=== PATIENT | male | born 1990 | race Caucasian/White ===

== ENCOUNTER 2016-11-18 12:02 | Emergency (ER) | payer SELFPAY ==
[~2016-11-18] VITALS: Ht 185.4 cm; Wt 78.0 kg
[~2016-11-18 12:02] MED LIST: Z.0.NO CURRENT MEDS
[2016-11-18 12:06] VITALS: BP 130/84; PULSE 78; RESP 16; TEMP 98.2; O2SAT 99
--- NOTE | 2016-11-18 12:12 | PD ---
HPI Chief Complaint: Pain: Acute or Chronic Time Seen by Provider: 12:10 Travel History International Travel<30 days: No Contact w/Intl Traveler<30days: No Traveled to known affect area: No History of Present Illness HPI 26 year old male presents to the ED for evaluation of 5/10 left-sided rib pain. Onset 3 days ago after he fell approximately 3 feet onto a wooden post. He endorses pain in the area, worsened by deep breathing and certain motions. He also endorses mild nausea. Denies abdominal pain, anorexia, changes in bowel habits, hematuria or back pain. He's been treating by resting. He's unsure of previous injury to the area. PFSH Past Medical History Hx Anticoagulant Therapy: No Anxiety: Yes Heart Rhythm Problems: Yes (HEART MURMUR ) Diminished Hearing: No Immunizations Current: Yes Social History Alcohol Use: Yes (SOCIAL) Tobacco Use: Yes (1 PPD) Substance Use: No Allergies-Medications (Allergen,Severity, Reaction): Coded Allergies: Advil (Verified Allergy, Mild, Swelling, 11/18/16) Reported Meds & Prescriptions Reported Meds & Active Scripts Active No Active Prescriptions or Reported Medications Review of Systems Except as stated in HPI: all other systems reviewed are Neg Physical Exam Narrative GENERAL: Well-nourished, well-developed white male in no acute distress. SKIN: Focused skin assessment warm/dry. No edema, ecchymosis or abrasion noted. HEAD: Normocephalic. EYES: No scleral icterus. No injection or drainage. NECK: Supple, trachea midline. No JVD or lymphadenopathy. CARDIOVASCULAR: Regular rate and rhythm without murmurs, gallops, or rubs. CHEST: Tender to palpation of the lower left anterior ribs. RESPIRATORY: Breath sounds clear and equal bilaterally. No accessory muscle use. GASTROINTESTINAL: Abdomen soft, non-tender, nondistended. + Active bowel sounds. No tenderness to deep palpation of the spleen. MUSCULOSKELETAL: No cyanosis, or edema. Patient is noted to walk with a normal gait. He moves extremities spontaneously. BACK: Nontender without obvious deformity. No CVA tenderness. No midline tenderness to palpation. Data Data Last Documented VS Vital Signs Date Time Temp Pulse Resp B/P Pulse Ox O2 Delivery O2 Flow Rate FiO2 11/18/16 12:06 98.2 78 16 130/84 99 Orders Ribs, Uni (W/Exp Cxr-Min 3vw) (11/18/16 12:17) [facility] Medical Decision Making Medical Screen Exam Complete: Yes Emergency Medical Condition: Yes Differential Diagnosis contusion versus rib fracture versus splenic injury versus pneumothorax versus other Narrative Course 26 year old male presents to the ED for evaluation of 5/10 left-sided rib pain. Onset 3 days ago after he fell approximately 3 feet onto a wooden post. He endorses pain in the area, worsened by deep breathing and certain motions. He also endorses mild nausea. Denies abdominal pain, anorexia, changes in bowel habits, hematuria or back pain. Vitals reviewed. Physical exam reveals a nontoxic-appearing white male in no acute distress. There is no ecchymosis or edema over the anterior lateral ribs. ++ Mild tenderness to palpation of anterior lateral ribs. Abdominal exam is benign. Deep palpation of the spleen produces no pain. Breath sounds clear and equal bilaterally. No tenderness to palpation of the back. Patient endorses allergy to Advil. X-rays reveal no definite rib fracture or displaced ribs per radiology read. This is rib contusion. I offered the patient a prescription for Naprosyn which he declined. Patient instructed to rest, ice, utilize OTC pain medications, return to normal, gentle activity as tolerated, follow up with the primary care provider. He indicated understanding of instructions and is agreeable to the care plan. Patient is stable and discharged home. Diagnosis Primary Impression: Contusion of rib on left side Qualified Code: S20.212A - Contusion of rib on left side, initial encounter Referrals: Primary Care Physician Patient Instructions: General Instructions, Rib Contusion (ED) Additional Instructions: Rest, ice. Apply ice no longer than 10-15 minutes per hour a few times a day. Aleve 500md twice a day to reduce pain and inflammation. Return to normal, gentle activity as tolerated. Follow-up with primary care provider. Return to the ED for any urgent or emergent medical condition. Scripts No Active Prescriptions or Reported Meds Disposition: 01 DISCHARGE HOME Condition: Stable Rohini Guido Nov 18, 2016 12:12
--- NOTE | 2016-11-18 13:23 | RADHPO ---
EXAM DATE/TIME: 11/18/2016 12:27 [facility] COMPARISON: No previous studies available for comparison. INDICATIONS : Fall from ladder 3 days ago. Continued left lower rib pain. MEDICAL HISTORY : None. SURGICAL HISTORY : None. ENCOUNTER: Initial ACUITY: 3 days PAIN SCORE: 7/10 LOCATION: Left lower chest FINDINGS: No definite displaced rib fractures or pneumothorax is identified. CONCLUSION: No definite displaced rib fractures. Mansi Tillman MD on November 18, 2016 at 13:20 Board Certified Radiologist. This report was verified electronically.
== END 2016-11-18 13:46 | disposition home or self-care (01) ==
LOC: PHEFT 12:02
DX: S20.212A Contusion of left front wall of thorax, initial encounter (principal); R01.1 Cardiac murmur, unspecified; F17.210 Nicotine dependence, cigarettes, uncomplicated; W17.89XA Other fall from one level to another, initial encounter; Y93.9 Activity, unspecified; Y92.9 Unspecified place or not applicable; Y99.8 Other external cause status
CPT/HCPCS: 71101; 99283

== ENCOUNTER 2017-08-30 09:18 | Emergency (ER) | payer SELFPAY ==
[~2017-08-30] VITALS: Ht 185.4 cm; Wt 77.0 kg
[2017-08-30 09:20] VITALS: BP 142/88; PULSE 88; RESP 14; TEMP 98.2; O2SAT 100
[2017-08-30 10:09] LABS: BILIRUBIN, URINE NEG (NEG); BLOOD, URINE TRACE (NEG); GLUCOSE,URINE NEG (NEG); KETONE, URINE TRACE mg/dL (NEG); NITRITE,URINE NEG (NEG); URINE COLOR LIGHT-YELLOW (YELLW/STRAW); URINE LEUKOCYTE ESTERASE SMALL (NEG)
--- NOTE | 2017-08-30 12:58 | RADRPT ---
EXAM DATE/TIME: 08/30/2017 12:39 [facility] COMPARISON: No previous studies available for comparison. INDICATIONS : Right flank pain,renal calculi. ORAL CONTRAST: No oral contrast ingested. RADIATION DOSE: 7.97 CTDIvol (mGy) MEDICAL HISTORY : Heart murmur SURGICAL HISTORY : None. ENCOUNTER: Initial ACUITY: 3 days PAIN SCALE: 7/10 LOCATION: Right flank TECHNIQUE: Volumetric scanning of the abdomen and pelvis was performed. Using automated exposure control and ad justment of the mA and/or kV according to patient size, radiation dose was kept as low as reasonably achievable to obtain optimal diagnostic quality images. DICOM format image data is available electro nically for review and comparison. FINDINGS: LOWER LUNGS: The visualized lower lungs are clear. LIVER: Homogeneous density without lesion. There is no dilation of the biliary tree. No calcified gallston es. SPLEEN: Normal size without lesion. PANCREAS: Within normal limits. KIDNEYS: There is a 5 mm mid right ureteral stone projecting at the level of the L3-L4 disc space. This genera esther moderate hydronephrosis and proximal hydroureter. No other stones observed. Left kidney is unrema rkable. No perinephric stranding or fluid collections involving either kidney. ADRENAL GLANDS: Within normal limits. VASCULAR: There is no aortic aneurysm. BOWEL/MESENTERY: The stomach, small bowel, and colon demonstrate no acute abnormality. There is no free intraperitone al air or fluid. ABDOMINAL WALL: Within normal limits. RETROPERITONEUM: There is no lymphadenopathy. BLADDER: No wall thickening or mass. REPRODUCTIVE: Within normal limits. INGUINAL: There is no lymphadenopathy or hernia. MUSCULOSKELETAL: Within normal limits for patient age. CONCLUSION: 1. 5 mm mid right ureteral stone with resulting obstruction. No perinephric fluid collections. Lakhwinder Saleh Jr., MD on August 30, 2017 at 12:51 Board Certified Radiologist. This report was verified electronically.
[2017-08-30] MEDS ORDERED: KETOROLAC TROMETHAMINE 30 MG/ML (IVP) VIAL IVP ONE (13:15)
[2017-08-30] MEDS ORDERED: TAMSULOSIN HCL 0.4 MG CAP PO ONE (13:15)
[2017-08-30] MEDS ORDERED: SODIUM CHLOR 0.9% 1000 ML INJ 1,000 ML IV ONE (13:15)
[2017-08-30] MEDS ORDERED: ONDANSETRON HCL 4 MG/2 ML VIAL IVP ONE (13:15)
[2017-08-30] MEDS ORDERED: SODIUM CHLORIDE 0.9% FLUSH 10 ML FLUSH IVF PRN (13:15)
--- NOTE | 2017-08-30 13:19 | PD ---
HPI Chief Complaint: Flank/Kidney Pain Time Seen by Provider: 12:53 Travel History International Travel<30 days: No Contact w/Intl Traveler<30days: No Traveled to known affect area: No History of Present Illness HPI 27-year-old male presents to emergency department with ongoing right kidney stone pain, which has been going on for approximately 10 days. Patient was originally seen at [facility], with follow-up with one of their urologist possibly one week ago. Patient states his pain is still intermittent and he had a bad right flank pain attack earlier this morning. Patient was on Toradol and Flomax, but currently only on ibuprofen since seeing the urologist. He denies hematuria since the beginning. No fever, chills, he has had nausea but no vomiting. Patient is reportedly allergic to ibuprofen but can take Toradol, and took ibuprofen this morning. PFSH Past Medical History Hx Anticoagulant Therapy: No Anxiety: Yes Heart Rhythm Problems: Yes (HEART MURMUR ) Diminished Hearing: No Immunizations Current: Yes Social History Alcohol Use: Yes (SOCIAL) Tobacco Use: No (QUIT 11/11/16) Substance Use: No Allergies-Medications (Allergen,Severity, Reaction): Coded Allergies: ibuprofen (Verified Allergy, Unknown, 08/30/17) Reported Meds & Prescriptions Reported Meds & Active Scripts Active Hydrocodone-Acetaminophen 5-325 mg Tab 1 Tab PO Q6H PRN Zofran (Ondansetron HCl) 4 Mg Tab 4 Mg PO Q6HR PRN Flomax (Tamsulosin HCl) 0.4 Mg Cap 0.4 Mg PO HS Ibuprofen 800 Mg Tab 800 Mg PO Q8H PRN Review of Systems Except as stated in HPI: all other systems reviewed are Neg General / Constitutional: No: Fever, Chills Eyes: No: Visual changes HENT: No: Headaches Cardiovascular: No: Chest Pain or Discomfort Respiratory: No: Shortness of Breath Gastrointestinal: No: Abdominal Pain Genitourinary: Positive: Hematuria, Flank Pain (history), No: Dysuria Musculoskeletal: No: Pain Skin: No Rash Neurologic: No: Weakness Psychiatric: No: Depression Endocrine: No: Polydipsia Hematologic/Lymphatic: No: Easy Bruising Physical Exam Narrative GENERAL: Patient appears in mild distress. SKIN: Warm and dry. Normal color. Normal turgor HEAD: Atraumatic. Normocephalic. EYES: Pupils equal and round. No scleral icterus. No injection or drainage. ENT: No nasal bleeding or discharge. Mucous membranes pink and moist. NECK: Trachea midline. No JVD. CARDIOVASCULAR: Regular rate and rhythm. RESPIRATORY: No accessory muscle use. Clear to auscultation. Breath sounds equal bilaterally. GASTROINTESTINAL: Abdomen soft, non-tender, nondistended. Hepatic and splenic margins not palpable. Mild to moderate right-sided flank pain with pelvic compression. MUSCULOSKELETAL: Extremities without clubbing, cyanosis, or edema. No obvious deformities. NEUROLOGICAL: Awake and alert. No obvious cranial nerve deficits. Motor grossly within normal limits. Five out of 5 muscle strength in the arms and legs. Normal speech. PSYCHIATRIC: Appropriate mood and affect; insight and judgment normal. Data Data Last Documented VS Vital Signs Date Time Temp Pulse Resp B/P (MAP) Pulse Ox O2 Delivery O2 Flow Rate FiO2 08/30/17 09:20 98.2 88 14 142/88 (106) 100 Orders Orders Urinalysis - C+S If Indicated (08/30/17 09:35) Ct Abd/Pel W/O Iv Contrast (08/30/17 ) Complete Blood Count With Diff (08/30/17 13:06) Comprehensive Metabolic Panel (08/30/17 13:06) Iv Access Insert/Monitor (08/30/17 13:06) Ketorolac Inj (Toradol Inj) (08/30/17 13:15) Ondansetron Inj (Zofran Inj) (08/30/17 13:15) Sodium Chloride 0.9% Flush (Ns Flush) (08/30/17 13:15) Tamsulosin (Flomax) (08/30/17 13:15) Sodium Chlor 0.9% 1000 Ml Inj (Ns 1000 M (08/30/17 13:15) Ed Discharge Order (08/30/17 14:48) Labs Laboratory Tests Test 08/30/17 09:40 08/30/17 13:26 08/30/17 13:36 Urine Color LIGHT-YELLOW Urine Turbidity CLEAR Urine pH 6.0 Urine Specific [place] 1.003 Urine Protein NEG mg/dL Urine Glucose (UA) NEG mg/dL Urine Ketones TRACE mg/dL Urine Occult Blood TRACE Urine Nitrite NEG Urine Bilirubin NEG Urine Urobilinogen LESS THAN 2.0 MG/DL Urine Leukocyte Esterase SMALL Urine RBC 2 /hpf Urine WBC 3 /hpf Microscopic Urinalysis Comment CULT NOT INDICATED Blood Urea Nitrogen 9 MG/DL Creatinine 0.98 MG/DL Random Glucose 97 MG/DL Total Protein 7.3 GM/DL Albumin 4.2 GM/DL Calcium Level 9.0 MG/DL Alkaline Phosphatase 89 U/L Aspartate Amino Transf (AST/SGOT) 13 U/L Alanine Aminotransferase (ALT/SGPT) 15 U/L Total Bilirubin 0.3 MG/DL Sodium Level 142 MEQ/L Potassium Level 3.8 MEQ/L Chloride Level 108 MEQ/L Carbon Dioxide Level 27.1 MEQ/L Anion Gap 7 MEQ/L Estimat Glomerular Filtration Rate 90 ML/MIN White Blood Count 5.5 TH/MM3 Red Blood Count 4.84 MIL/MM3 Hemoglobin 15.1 GM/DL Hematocrit 42.8 % Mean Corpuscular Volume 88.4 FL Mean Corpuscular Hemoglobin 31.2 PG Mean Corpuscular Hemoglobin Concent 35.3 % Red Cell Distribution Width 12.4 % Platelet Count 272 TH/MM3 Mean Platelet Volume 7.9 FL Neutrophils (%) (Auto) 69.4 % Lymphocytes (%) (Auto) 22.5 % Monocytes (%) (Auto) 6.1 % Eosinophils (%) (Auto) 1.5 % Basophils (%) (Auto) 0.5 % Neutrophils # (Auto) 3.8 TH/MM3 Lymphocytes # (Auto) 1.2 TH/MM3 Monocytes # (Auto) 0.3 TH/MM3 Eosinophils # (Auto) 0.1 TH/MM3 Basophils # (Auto) 0.0 TH/MM3 CBC Comment DIFF FINAL Differential Comment MDM Medical Decision Making Medical Screen Exam Complete: Yes Emergency Medical Condition: Yes Differential Diagnosis Right flank pain. Renal colic. Obstructive nephritis. Narrative Course Urine was ordered as well as CT scan while in triage. Urinalysis positive for blood. No signs of infection. CT scan shows: There is a 5 mm mid right ureteral stone projecting at the level of the L3-L4 disc space. This generates moderate hydronephrosis and proximal hydroureter. No other stones observed. Left kidney is unremarkable. No perinephric stranding or fluid collections involving either kidney. IV access is obtained and labs are obtained including CBC, and CMP. Patient is given 30 g Toradol IV as well as 4 mg Zofran IV, as well as 0.4 mg Flomax by mouth. Patient is given 1000 mL normal saline bolus. CBC is unremarkable. CMP is unremarkable. BUN and creatinine are normal at 7 and 0.98 consecutively. GFR is 90. Call was placed to Dr. Keane, the urologist on-call, to discuss the patient. Patient discussed with Dr. Keane, Patient discharged home on ibuprofen 800 mg 3 times daily with food #30. Patient placed on Flomax 0.4 mg daily #30. Patient also placed on Zofran 4 mg every 6 hours when necessary nausea. Patient given Lortab 5/325 one tab every 6 hours when necessary pain #10. Patient to call Dr. Keane's office for follow-up. Patient can return the emergency Department with worsening symptoms as discussed. Diagnosis Primary Impression: Kidney stone on right side Referrals: Rogelio Keane DO Patient Instructions: General Instructions, Kidney Stones (ED) Additional Instructions: Patient discharged home on ibuprofen 800 mg 3 times daily with food #30. Patient placed on Flomax 0.4 mg daily #30. Patient also placed on Zofran 4 mg every 6 hours when necessary nausea. Patient given Lortab 5/325 one tab every 6 hours when necessary pain #10. Patient to call Dr. Keane's office for follow-up. Patient can return the emergency Department with worsening symptoms as discussed. Med/Other Pt SpecificInfo: Prescription(s) given Scripts Hydrocodone-Acetaminophen (Hydrocodone-Acetaminophen) 5-325 mg Tab 1 TAB PO Q6H Y for PAIN, #10 TAB 0 Refills Prov: Brad León MD 08/30/17 Ondansetron (Zofran) 4 Mg Tab 4 MG PO Q6HR Y for NAUSEA OR VOMITING, #12 TAB 0 Refills Prov: Brad León MD 08/30/17 Tamsulosin (Flomax) 0.4 Mg Cap 0.4 MG PO HS for Manage Prostate Problems, #30 CAP 0 Refills Prov: Brad León MD 08/30/17 Ibuprofen (Ibuprofen) 800 Mg Tab 800 MG PO Q8H Y for Pain/Inflammation, #30 TAB 0 Refills Prov: Brad León MD 08/30/17 Disposition: 01 DISCHARGE HOME Condition: Stable Sharath Brady Aug 30, 2017 13:19
[2017-08-30 14:02] LABS: AUTOMATED NEUTROPHIL # 3.8 TH/MM3 (1.8-7.7); BASOPHIL % 0.5 % (0.0-2.0); EOSINOPHIL # 0.1 TH/MM3 (0-0.4); EOSINOPHIL % 1.5 % (0.0-4.0); HEMATOCRIT 42.8 % (39.0-51.0); HEMOGLOBIN 15.1 GM/DL (13.0-17.0); LYMPH % 22.5 % (9.0-44.0); LYMPHOCYTE # 1.2 TH/MM3 (1.0-4.8); MEAN CELL VOLUME 88.4 FL (80.0-100.0); MEAN CORPUSCULAR HEMOGLOBIN 31.2 PG (27.0-34.0); MEAN CORPUSCULAR HGB CONC 35.3 % (32.0-36.0); MEAN PLATELET VOLUME 7.9 FL (7.0-11.0); MONO % 6.1 % (0.0-8.0); MONOCYTE # 0.3 TH/MM3 (0-0.9); NEUT % 69.4 % (16.0-70.0); PLATELET COUNT 272 TH/MM3 (150-450); RED BLOOD COUNT 4.84 MIL/MM3 (4.50-5.90); RED CELL DISTRIBUTION WIDTH 12.4 % (11.6-17.2); WHITE BLOOD COUNT 5.5 TH/MM3 (4.0-11.0)
[2017-08-30 14:29] LABS: ALBUMIN 4.2 GM/DL (3.4-5.0); AST (GOT) 13 U/L (15-37); BICARBONATE 27.1 MEQ/L (21.0-32.0); BLOOD UREA NITROGEN 9 MG/DL (7-18); CHLORIDE 108 MEQ/L (98-107); CREATININE 0.98 MG/DL (0.60-1.30); GLOMERULAR FILTRATION RATE 90 ML/MIN (>89); GLUCOSE,RANDOM 97 MG/DL (74-106); SODIUM (NA) 142 MEQ/L (136-145)
[2017-08-30 14:36] LABS: ALKALINE PHOSPHATASE 89 U/L (45-117); ALT (GPT) 15 U/L (12-78); TOTAL BILIRUBIN ADULT 0.3 MG/DL (0.2-1.0); TOTAL PROTEIN 7.3 GM/DL (6.4-8.2)
[2017-08-30] MEDS ORDERED: TAMS5CAP PO (14:41)
[2017-08-30] MEDS ORDERED: ZOFR4TAB PO (14:41)
[2017-08-30] MEDS ORDERED: TRAM50TA PO (14:41)
[2017-08-30] MEDS ORDERED: IBUP1TAB7 PO (14:41)
[2017-08-30] MEDS ORDERED: HYDR-3516 PO (14:44)
== END 2017-08-30 15:37 | disposition home or self-care (01) ==
LOC: NEPC 09:18
DX: N20.0 Calculus of kidney (principal); F41.9 Anxiety disorder, unspecified; R01.1 Cardiac murmur, unspecified; Z79.899 Other long term (current) drug therapy; Z88.6 Allergy status to analgesic agent
CPT/HCPCS: 74176; 80053; 81001; 85025; 96361; 96374; 96375; 99285; J1885; J2405; J7030

== ENCOUNTER 2017-09-08 12:27 | Emergency (ER) | payer SELFPAY ==
[~2017-09-08 12:27] MED LIST changes: +HYDR-3516 PO; +IBUP1TAB7 PO; +TAMS5CAP PO; -Z.0.NO CURRENT MEDS; +ZOFR4TAB PO
[2017-09-08 12:28] VITALS: BP 156/91; PULSE 95; RESP 12; TEMP 97.6; O2SAT 97
[2017-09-08 13:11] LABS: BILIRUBIN, URINE NEG (NEG); BLOOD, URINE TRACE (NEG); GLUCOSE,URINE NEG (NEG); KETONE, URINE NEG (NEG); NITRITE,URINE NEG (NEG); PH, URINE 6.5 (5.0-8.5); SQUAMOUS EPITHELIAL CELL URINE <1 /hpf (0-5); URINE LEUKOCYTE ESTERASE NEG (NEG)
[2017-09-08 13:21] LABS: URINE COLOR STRAW (YELLW/STRAW)
[2017-09-08] MEDS ORDERED: SODIUM CHLOR 0.9% 1000 ML INJ 1,000 ML IV SCH (14:35)
--- NOTE | 2017-09-08 14:43 | PD ---
HPI Chief Complaint: Cold / Flu Symptoms Time Seen by Provider: 14:09 Travel History International Travel<30 days: No Contact w/Intl Traveler<30days: No Traveled to known affect area: No History of Present Illness HPI 27-year-old male presents for evaluation of chills, sweaty palms, fatigue. Symptoms started this morning. He reports a history of right ureteral stone initially for the past few weeks. Initially he was seen at an outside emergency room and then she was seen here in August 30, 2017 where he was found to have a right 5 mm ureteral stone. She reports that he has been asymptomatic today in regards to his kidney stone. He has had no abdominal or flank pain. He has had intermittent pain over the past few days. He has been urinating into restrainer "most of the time" and has not passed the stone as far as he is aware. He has had a slight cough over the past 2 weeks. He reports that he has been hydrating well. He denies any fevers, chills, sore throat, abdominal pain, nausea or vomiting, diarrhea or constipation. He has been unable to follow-up with a urologist since his recent visit secondary to lack of insurance. He has no other complaints. PFSH Past Medical History Hx Anticoagulant Therapy: No Anxiety: Yes Heart Rhythm Problems: Yes Diminished Hearing: No Immunizations Current: Yes Social History Alcohol Use: Yes (SOCIAL) Tobacco Use: Yes Substance Use: No Allergies-Medications (Allergen,Severity, Reaction): Coded Allergies: No Known Allergies (Unverified , 09/08/17) Reported Meds & Prescriptions Reported Meds & Active Scripts Active Hydrocodone-Acetaminophen 5-325 mg Tab 1 Tab PO Q6H PRN Zofran (Ondansetron HCl) 4 Mg Tab 4 Mg PO Q6HR PRN Flomax (Tamsulosin HCl) 0.4 Mg Cap 0.4 Mg PO HS Ibuprofen 800 Mg Tab 800 Mg PO Q8H PRN Review of Systems Except as stated in HPI: all other systems reviewed are Neg Physical Exam Narrative GENERAL: Well-developed well-nourished male in no acute distress SKIN: Warm and dry. HEAD: Atraumatic. Normocephalic. EYES: Pupils equal and round. No scleral icterus. No injection or drainage. ENT: No nasal bleeding or discharge. Mucous membranes pink and moist. NECK: Trachea midline. No JVD. CARDIOVASCULAR: Regular rate and rhythm. No murmur appreciated. RESPIRATORY: No accessory muscle use. Clear to auscultation. Breath sounds equal bilaterally. GASTROINTESTINAL: Abdomen soft, non-tender, nondistended. Hepatic and splenic margins not palpable. No CVA tenderness MUSCULOSKELETAL: No obvious deformities. No clubbing. No cyanosis. No edema. NEUROLOGICAL: Awake and alert. No obvious cranial nerve deficits. Motor grossly within normal limits. Normal speech. PSYCHIATRIC: Appropriate mood and affect; insight and judgment normal. Data Data Last Documented VS Vital Signs Date Time Temp Pulse Resp B/P (MAP) Pulse Ox O2 Delivery O2 Flow Rate FiO2 09/08/17 14:13 16 98 Room Air 09/08/17 12:28 97.6 95 156/91 (112) Orders Orders Influenzae A/B Antigen (09/08/17 12:35) Urinalysis - C+S If Indicated (09/08/17 12:40) Basic Metabolic Panel (Bmp) (09/08/17 14:35) Complete Blood Count With Diff (09/08/17 14:35) Ondansetron Inj (Zofran Inj) (09/08/17 14:45) Sodium Chlor 0.9% 1000 Ml Inj (Ns 1000 M (09/08/17 14:35) Ed Discharge Order (09/08/17 15:54) Mandatory Outpatient Referral (09/08/17 15:55) Labs Laboratory Tests Test 09/08/17 12:44 09/08/17 15:02 Urine Color STRAW Urine Turbidity CLEAR Urine pH 6.5 Urine Specific [place] 1.001 Urine Protein NEG mg/dL Urine Glucose (UA) NEG mg/dL Urine Ketones NEG mg/dL Urine Occult Blood TRACE Urine Nitrite NEG Urine Bilirubin NEG Urine Urobilinogen LESS THAN 2.0 MG/DL Urine Leukocyte Esterase NEG Urine RBC LESS THAN 1 /hpf Urine WBC LESS THAN 1 /hpf Urine Squamous Epithelial Cells <1 /hpf Microscopic Urinalysis Comment CULT NOT INDICATED White Blood Count 7.4 TH/MM3 Red Blood Count 5.00 MIL/MM3 Hemoglobin 15.3 GM/DL Hematocrit 44.2 % Mean Corpuscular Volume 88.5 FL Mean Corpuscular Hemoglobin 30.6 PG Mean Corpuscular Hemoglobin Concent 34.6 % Red Cell Distribution Width 12.7 % Platelet Count 230 TH/MM3 Mean Platelet Volume 8.4 FL Neutrophils (%) (Auto) 78.7 % Lymphocytes (%) (Auto) 15.2 % Monocytes (%) (Auto) 4.9 % Eosinophils (%) (Auto) 0.9 % Basophils (%) (Auto) 0.3 % Neutrophils # (Auto) 5.8 TH/MM3 Lymphocytes # (Auto) 1.1 TH/MM3 Monocytes # (Auto) 0.4 TH/MM3 Eosinophils # (Auto) 0.1 TH/MM3 Basophils # (Auto) 0.0 TH/MM3 CBC Comment DIFF FINAL Differential Comment Blood Urea Nitrogen 9 MG/DL Creatinine 0.80 MG/DL Random Glucose 82 MG/DL Calcium Level 9.2 MG/DL Sodium Level 140 MEQ/L Potassium Level 3.7 MEQ/L Chloride Level 106 MEQ/L Carbon Dioxide Level 27.6 MEQ/L Anion Gap 6 MEQ/L Estimat Glomerular Filtration Rate 114 ML/MIN MDM Medical Decision Making Medical Screen Exam Complete: Yes Emergency Medical Condition: Yes Medical Record Reviewed: Yes Differential Diagnosis Anxiety, dehydration, renal failure, pyelonephritis, influenza, bronchitis Narrative Course 27-year-old male with known right-sided 5 mm ureteral stone presents with 1 day history of chills, sweaty palms and fatigue. He appears well. His abdomen is soft nontender. No CVA tenderness. A urinalysis was obtained in triage revealing trace blood with no other acute abnormalities. Influenza antigen was negative. He will be given IV fluids, Zofran. CBC, BMP have been ordered. CBC and BMP are unremarkable. The patient appears well. He does note that he has been cutting out caffeine from his diet and this could be causing his fatigue. I have ordered a mandatory outpatient referral for urology follow-up in regards to his right 5 mm ureteral stone. I discussed signs and symptoms that would warrant returning to the emergency room. He is stable for discharge. Diagnosis Primary Impression: Fatigue Additional Impression: History of renal stone Additional Instructions: Stay well hydrated and well-nourished, urinate into a strainer, follow-up with urology. If you develop intractable nausea and vomiting, intractable flank or abdominal pain, fevers, return to the emergency room. Med/Other Pt SpecificInfo: No Change to Meds Disposition: 01 DISCHARGE HOME Condition: Stable Randal Shankar Sep 08, 2017 14:43
[2017-09-08] MEDS ORDERED: ONDANSETRON HCL 4 MG/2 ML VIAL IVP ONE (14:45)
[2017-09-08 15:15] LABS: AUTOMATED NEUTROPHIL # 5.8 TH/MM3 (1.8-7.7); BASOPHIL % 0.3 % (0.0-2.0); EOSINOPHIL # 0.1 TH/MM3 (0-0.4); EOSINOPHIL % 0.9 % (0.0-4.0); HEMATOCRIT 44.2 % (39.0-51.0); HEMOGLOBIN 15.3 GM/DL (13.0-17.0); LYMPH % 15.2 % (9.0-44.0); LYMPHOCYTE # 1.1 TH/MM3 (1.0-4.8); MEAN CELL VOLUME 88.5 FL (80.0-100.0); MEAN CORPUSCULAR HEMOGLOBIN 30.6 PG (27.0-34.0); MEAN CORPUSCULAR HGB CONC 34.6 % (32.0-36.0); MEAN PLATELET VOLUME 8.4 FL (7.0-11.0); MONO % 4.9 % (0.0-8.0); MONOCYTE # 0.4 TH/MM3 (0-0.9); NEUT % 78.7 % (16.0-70.0); PLATELET COUNT 230 TH/MM3 (150-450); RED CELL DISTRIBUTION WIDTH 12.7 % (11.6-17.2); WHITE BLOOD COUNT 7.4 TH/MM3 (4.0-11.0)
[2017-09-08 15:25] LABS: BICARBONATE 27.6 MEQ/L (21.0-32.0); CALCIUM 9.2 MG/DL (8.5-10.1); CREATININE 0.8 MG/DL (0.60-1.30)
[2017-09-08 16:14] VITALS: BP 123/77
== END 2017-09-08 16:30 | disposition home or self-care (01) ==
LOC: NEPC 12:27
DX: R53.83 Other fatigue (principal); R05 Cough; F41.9 Anxiety disorder, unspecified; Z87.442 Personal history of urinary calculi; Z72.0 Tobacco use; Z79.899 Other long term (current) drug therapy
CPT/HCPCS: 80048; 81001; 85025; 87804; 96360; 99283; J7030